=== PATIENT | male | born 1990 | race Caucasian/White ===

== ENCOUNTER 2022-03-24 16:11 | Emergency (ER) | payer BC ==
[2022-03-24] MEDS ORDERED: Ketorolac 30 MG/ML SDV IVPUSH ONE (17:00)
[2022-03-24] MEDS ORDERED: hydrOXYzine HCL 100 MG/2 ML SDV IM ONE ×2 (17:00→17:57)
[2022-03-24] MEDS ORDERED: HYDROmorphone 1 MG/ML Syringe IVPUSH ONE (17:00)
[2022-03-24] MEDS ORDERED: Ondansetron 4 MG/2 ML SDV IVPUSH ONE (17:16)
[2022-03-24] MEDS ORDERED: Cyclobenzaprine 10 MG Tab PO ONE (18:15)
[2022-03-24] MEDS ORDERED: Acetaminophen 500 MG Tab PO ONE (18:34)
== END 2022-03-24 18:45 | disposition home or self-care (01) ==
LOC: KA.ED 16:11
DX: M54.50 Low back pain, unspecified (principal); M79.651 Pain in right thigh; M79.652 Pain in left thigh; M25.551 Pain in right hip; K21.9 Gastro-esophageal reflux disease without esophagitis; E78.00 Pure hypercholesterolemia, unspecified; I10 Essential (primary) hypertension; Z88.1 Allergy status to other antibiotic agents; Z79.84 Long term (current) use of oral hypoglycemic drugs; Z79.899 Other long term (current) drug therapy
CPT/HCPCS: 96372; 96374; 96375; 99283-25; 99284; A9270-GY; J1170; J1885; J2405; J3410